=== PATIENT | male | born 2000 | race Caucasian/White ===

== ENCOUNTER 2022-12-31 15:59 | Emergency (ER) | payer OTHER ==
[~2022-12-31] VITALS: Ht 182.9 cm; Wt 142.4 kg
[2022-12-31 16:04] VITALS: BP 163/74
--- NOTE | 2022-12-31 16:28 | NUR ---
Patient being evaluated by Dr. Villegas at bedside.
--- NOTE | 2022-12-31 16:49 | NUR ---
Lab at bedside.
[2022-12-31 16:56] LABS: BASOPHILS % (AUTO) 0.3 % (0.0-2.0); EOSINOPHILS % (AUTO) 0.5 % (0.0-4.0); HEMATOCRIT 43.8 % (36-52); HEMOGLOBIN 14.6 g/dL (12.0-18.0); LYMPHOCYTES # (AUTO) 3.4 K/uL (2.0-11.5); LYMPHOCYTES % (AUTO) 34.4 % (20.5-51.1); MEAN CORPUSCULAR HEMOGLOBIN 29 pg (27-31); MEAN CORPUSCULAR HGB CONC 33 g/dL (33-37); MEAN CORPUSCULAR VOLUME 86.7 fL (80-94); MONOCYTES # (AUTO) 0.8 K/uL (0.8-1.0); MONOCYTES % (AUTO) 8.3 % (1.7-9.3); NEUTROPHILS # (AUTO) 5.7 K/uL (1.8-7.7); NEUTROPHILS % (AUTO) 56.5 % (42.2-75.2); PLATELET COUNT (AUTO) 239 K/uL (140-450); RED BLOOD CELL COUNT(AUTO) 5.05 MIL/uL (4.20-6.10); RED CELL DISTRIBUTION WIDTH 14.1 % (11.6-13.7)
[2022-12-31 17:15] LABS: ALBUMIN 4.4 g/dL (3.4-5.0); ANION GAP 10.7 (8-16); CARBON DIOXIDE 30.9 mmol/L (21-32); POTASSIUM 3.6 mmol/L (3.5-5.1); TOTAL BILIRUBIN 0.3 mg/dL (0.0-1.0)
--- NOTE | 2022-12-31 17:54 | NUR ---
Clare childers in [facility] - 12/31/22 at 1757 by MARK Patient being re-evaluated by Dr. Villegas at bedside.
[2022-12-31 18:20] VITALS: BP 144/84
--- NOTE | 2022-12-31 18:20 | NUR ---
Patient discharged with v/s stable. Written and verbal after care instructions given. Patient verbalized understanding. Ambulatory with steady gait. All questions addressed prior to discharge. Advised to follow up with PMD.
== END 2022-12-31 18:20 | disposition home or self-care (01) ==
LOC: MED 15:59
DX: I10 Essential (primary) hypertension (principal); Z98.890 Other specified postprocedural states
CPT/HCPCS: 36415; 71045; 80053; 83880; 84484; 85025; 93005; 99285

== ENCOUNTER 2023-02-28 12:16 | Emergency (ER) | payer OTHER ==
[~2023-02-28] VITALS: Ht 182.9 cm; Wt 137.0 kg
[2023-02-28 12:36] VITALS: BP 139/82
[2023-02-28] MEDS ORDERED: IBUP-2213 PO (13:16)
[2023-02-28 13:23] LABS: APPEARANCE,URINE CLEAR (CLEAR); BILIRUBIN,URINE NEGATIVE (NEGATIVE); BLOOD, URINE NEGATIVE (NEGATIVE); COLOR,URINE YELLOW (YELLOW); LEUKOCYTE ESTERASE ,URINE NEGATIVE (NEGATIVE); NITRITE, URINE NEGATIVE (NEGATIVE); UGLUCOSE NEGATIVE (NEGATIVE)
--- NOTE | 2023-02-28 13:27 | NUR ---
RESTING IN BED, AWAITING FOR RESULTS, DENIES PAIN
[2023-02-28 13:33] VITALS: BP 139/82
--- NOTE | 2023-02-28 13:34 | NUR ---
Patient discharged with v/s stable. Written and verbal after care instructions given and explained. Patient verbalized understanding. Ambulatory with steady gait. All questions addressed prior to discharge. Advised to follow up with PMD.
== END 2023-02-28 13:33 | disposition home or self-care (01) ==
LOC: MED 12:16
DX: R10.9 Unspecified abdominal pain (principal)
CPT/HCPCS: 81003; 99283

== ENCOUNTER 2024-08-10 15:00 | Emergency (ER) | payer OTHER ==
[~2024-08-10] VITALS: Ht 182.9 cm; Wt 140.6 kg
[~2024-08-10 15:00] MED LIST: IBUP-2213 PO
[2024-08-10 15:29] VITALS: BP 164/103; PULSE 75; RESP 19; TEMP 98.2; O2SAT 96
[2024-08-10 16:13] LABS: APPEARANCE,URINE CLEAR (CLEAR); BILIRUBIN,URINE NEGATIVE (NEGATIVE); BLOOD, URINE NEGATIVE (NEGATIVE); COLOR,URINE YELLOW (YELLOW); LEUKOCYTE ESTERASE ,URINE NEGATIVE (NEGATIVE); NITRITE, URINE NEGATIVE (NEGATIVE); PH,URINE 6.5 (5.0-9.0); PROTEIN,URINE NEGATIVE (NEGATIVE); UGLUCOSE NEGATIVE (NEGATIVE); UROBILINOGEN,URINE 0.2 EU/dL (0.2 - 1)
== END 2024-08-10 17:30 | disposition home or self-care (01) ==
LOC: MED 15:00
DX: M54.50 Low back pain, unspecified (principal); R35.0 Frequency of micturition; R03.0 Elevated blood-pressure reading, without diagnosis of hypertension; Z79.899 Other long term (current) drug therapy
CPT/HCPCS: 81003; 99283